=== PATIENT | male | born 1960 | race African-American/Black ===

== ENCOUNTER 2017-06-22 11:34 | Inpatient (IN) | payer MEDICARE, OTHER | END 2017-06-27 09:17 | disposition home or self-care (01) | DRG 897 | LOC: YASAS 11:34 → Y6N 15:08 | PROVIDERS: ADMIT Internal Medicine | PROC: HZ2ZZZZ Detoxification Services for Substance Abuse Treatment (ICD-10-PCS; principal; 2017-06-22) | CPT/HCPCS: 36415; 80053; 81003; 81015; 85027; 86593; 93005; 93010 ==

== ENCOUNTER 2020-11-04 14:27 | Emergency (ER) | payer MEDICARE, OTHER ==
[2020-11-04 14:55] VITALS: TEMP 98.5; BMI 24.7
[2020-11-04] MEDS ORDERED: ALBUTEROL SO4 2.5/IPRATROPIUM 0.5 INH SOL 3 ML VIAL.NEB. NEB ONE ×2 (14:56→15:38)
[2020-11-04] MEDS ORDERED: DEXAMETHASONE SOD PHOSPHATE 10 MG/1 ML VIAL IVPUSH ONE (15:15)
[2020-11-04] MEDS ORDERED: DEXAMETHASONE SOD PHOSPHATE 10 MG/1 ML VIAL ONE (15:38)
[2020-11-04] MEDS: ALBUTEROL SO4 2.5/IPRATROPIUM 0.5 INH SOL 3 ML VIAL.NEB. NEB SCH ×3 (15:43→16:48)
[2020-11-04 16:26] LABS: BASO % 0.4 % (0-2.0); EOS % 0.1 % (0-4.5); HEMATOCRIT 40.6 % (35.4-49); HEMOGLOBIN 14.2 GM/dL (11.7-16.9); LYMPH % 35.9 % (8-40); MCH 29.7 pg (25.7-33.7); MEAN CELL VOLUME 84.7 fl (80-96); MEAN PLT VOLUME 7.8 fl (7.5-11.1); NEUT % 56.6 % (42.8-82.8); PLATELET COUNT 315 10^3/uL (134-434); RBC 4.79 M/mm3 (4.00-5.60); RDW 13.9 % (11.9-15.9); WHITE BLOOD COUNT 7.6 K/mm3 (4.0-10.0)
[2020-11-04 16:35] LABS: INR 1.17 (0.83-1.09); PROTHROMBIN TIME (PATIENT) 14.1 SEC (9.7-13.0)
[2020-11-04 16:38] LABS: ACTIVATED PTT 35.9 SECONDS (25.2-36.5)
[2020-11-04 16:39] LABS: LACTIC ACID 2.1 mmol/L (0.4-2.0)
[2020-11-04 16:42] LABS: CHLORIDE 106 mmol/L (98-107); SODIUM 139 mmol/L (136-145); VENOUS BASE EXCESS -1.2 mmol/L (-2-2); VENOUS PCO2 39.7 mmHg (38-52); VENOUS PH 7.391 (7.310-7.410)
[2020-11-04 16:44] LABS: CALCIUM 8.8 mg/dL (8.5-10.1)
[2020-11-04 16:45] LABS: ANION GAP 8 MMOL/L (8-16); BLOOD UREA NITROGEN 14.7 mg/dL (7-18); CO2 24 mmol/L (21-32); GLUCOSE,RANDOM 95 mg/dL (74-106)
[2020-11-04 16:47] LABS: CREATININE 0.9 mg/dL (0.55-1.3)
[2020-11-04 16:48] LABS: SGOT/AST 43 U/L (15-37); SGPT/ALT 78 U/L (13-61)
[2020-11-04 16:49] LABS: BILIRUBIN,TOTAL 0.6 mg/dL (0.2-1); LDH 346 U/L (87-246); TOT PROT 8.8 g/dl (6.4-8.2)
[2020-11-04 16:50] LABS: ALK PHOS 226 U/L (45-117)
[2020-11-04 18:19] VITALS: BP 146/98; PULSE 118
[2020-11-04 19:22] LABS: EPI CELLS 3 /uL (0-25.1); HYALINE CASTS 0 /uL (0-3.1); PH,URINE 7.5 (5.0-8.0); URINE APPEARANCE CLEAR; URINE BACTERIA 11 /uL (0-1359); URINE BILIRUBIN NEGATIVE (NEGATIVE); URINE COLOR YELLOW; URINE GLUCOSE (UA) NEGATIVE (NEGATIVE); URINE KETONE NEGATIVE (NEGATIVE); URINE LEUK ESTERASE NEGATIVE (NEGATIVE); URINE NITRITE NEGATIVE (NEGATIVE); URINE PROTEIN 1+ (NEGATIVE); URINE RBC 7 /uL (0-23.9); URINE WBC 2 /uL (0-25.8)
[2020-11-04 19:47] LABS: LACTIC ACID 2.2 mmol/L (0.4-2.0)
== END 2020-11-04 19:42 | disposition left against medical advice (07) ==
LOC: JER 14:27
PROC: 3E0F7GC Introduction of Other Therapeutic Substance into Respiratory Tract, Via Natural or Artificial Opening (ICD-10-PCS; principal; 2020-11-04)
PROC: 3E033GC Introduction of Other Therapeutic Substance into Peripheral Vein, Percutaneous Approach (ICD-10-PCS; 2020-11-04)
DX: R06.02 Shortness of breath (principal)
CPT/HCPCS: 36415; 71045-TC-FY; 80053; 81003; 82550; 82553; 82728; 82803; 83605; 83615; 84484; 85025; 85379; 85610; 85730; 86140; 87040; 87086; 87804; 93005; 93010; 94640; 96374; 99285-25; C9803; J1100; U0003; U0005